=== PATIENT | male | born 1950 | race Caucasian/White ===

== ENCOUNTER → 2021-09-04 | Outpatient (CLI) | payer OTHER ==
[~2021-09-04] MED LIST: ASA81BEC PO; ATORVASTATIN CA20 MG PO; CELEXA 20 MG TA20 MG PO; ENVARSUS XR1 MG PO; K-PHOS NEUTRAL250 MG PO; LEVOTHYROXINE100 MCG PO; MYFORTIC360 MG PO; NORVASC5 MG PO; RAYOS5 MG PO; TAMSULOSIN HCL0.4 MG PO; WARFARIN SODIUM5 MG PO
== END ==
LOC: LAB 11:43
PROVIDERS: ATTEND Student in an Organized Health Care Education/Training Program
DX: Z01.812 Encounter for preprocedural laboratory examination (principal); Z20.822 Contact with and (suspected) exposure to COVID-19

== ENCOUNTER 2021-09-06 06:20 | Day surgery (SDC) | payer OTHER ==
[~2021-09-06] VITALS: Ht 182.9 cm; Wt 81.7 kg
--- NOTE | ~2021-09-06 | O ---
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 PROCEDURE: Left upper lid entropion repair. SURGEON: Favio De Los Santos MD CORK INSULATOR: None. ANESTHESIA: MAC. COMPLICATIONS: None. INDICATIONS FOR SURGERY: This pleasant 70-year-old gentleman has severe left upper lid entropion that precludes successful wear of an ocular prosthesis. He presents today for a left upper lid entropion repair. Informed consent was obtained to include but not limited to potential risk for bleeding, infection, and the need for further surgery or treatment. DESCRIPTION OF PROCEDURE: The patient was taken to the operating room where 2% Xylocaine with epinephrine mixed with equal parts 0.75% Marcaine with Wydase was administered transcutaneously and transconjunctivally across the entire upper lid medial canthus and lateral canthus. The patient was subsequently prepped and draped in the usual sterile fashion. A 15C blade was then used to make an incision 2 mm above the lid margin across the width of the tarsal conjunctiva. The dissection was then completed with a Kamila scissor across the entire width of the lid with a full tarsotomy. The anterior lamella was then rotated over 90 degrees, but less than 180 degrees as it was recessed and reattached with mattress 5-0 chromic sutures onto the anterior surface of the new lid margin. Multiple 5-0 chromic sutures were placed. This everted the lid margin well. Considerable oozing occurred throughout the case, but minimal cautery was used in order to limit the amount of cicatrization postoperatively. A medium size conformer was placed in the [address] [id number] OPERATIVE REPORT Name: ZAINA MCKEON Room #: 150-3 [facility]#: [id number] Admission: 09/06/21 Attend Phys: Favio De Los Santos MD Discharge: Date of : 48 Report #: [id number] socket followed by erythromycin ointment. The patient was then transported to the recovery area having tolerated the procedures well with no anesthetic or operative complications being noted. By: [id number] Favio De Los Santos MD /nt
[2021-09-06 07:23] VITALS: BP 144/79
== END 2021-09-06 08:05 | disposition home or self-care (01) ==
LOC: TBA 06:20 → OR 06:20
PROVIDERS: ATTEND Ophthalmology
DX: H02.014 Cicatricial entropion of left upper eyelid (principal); I10 Essential (primary) hypertension; E78.5 Hyperlipidemia, unspecified; F32.9 Major depressive disorder, single episode, unspecified; Z98.890 Other specified postprocedural states; Z79.899 Other long term (current) drug therapy; Z86.73 Personal history of transient ischemic attack (TIA), and cerebral infarction without residual deficits; Z87.891 Personal history of nicotine dependence; Z90.01 Acquired absence of eye; Z94.0 Kidney transplant status; Z98.41 Cataract extraction status, right eye; Z98.42 Cataract extraction status, left eye; Z88.2 Allergy status to sulfonamides
CPT/HCPCS: 50010; 50101; 50386; 50398; 51636; 51854; 56531; 62110; 62850; 70005